=== PATIENT | female | born 1965 | race Caucasian/White ===

== ENCOUNTER → 2024-10-22 09:43 | Outpatient (REF) | payer OTHER, SELFPAY | LOC: RAD 09:43 | PROVIDERS: ATTENDING PHYSICIAN Orthopaedic Surgery Hand Surgery; FAMILY PHYSICIAN Nurse Practitioner Gerontology | DX: M79.642 Pain in left hand (principal) | CPT/HCPCS: 76881 ==

== ENCOUNTER 2025-02-04 06:00 | Day surgery (SDC) | payer OTHER, SELFPAY ==
[2025-01-21 09:16] LABS: % Basophils 1.3 % (0-2); % Eosinophils 2.1 % (0-6); % Immature Granulocytes 0.3 % (0-0.5); % Neutrophils 52.3 % (42.2-75.2); Absolute Basophils 0.1 10^3/uL (0-0.2); Absolute Eosinophils 0.1 10^3/uL (0-0.7); Absolute Lymphocytes 1.4 10^3/uL (1.2-3.4); Absolute Monocytes 0.3 10^3/uL (0.1-0.6); Hematocrit 37.3 % (37.0-47.0); Hemoglobin 12.3 g/dL (12.0-16.0); Mean Corpuscular Hgb 32.9 pg (27.0-31.0); Mean Corpuscular Volume 99.7 fL (81.0-99.0); Mean Platelet Volume 9.7 fL (7.4-10.4); Nucleated Red Blood Cells % 0 %; Platelet Count 232 10^3/uL (130-400); Red Blood Cell Count 3.74 10^6/uL (4.20-5.40); Red Cell Dist. Width 13.4 % (11.5-14.5); White Blood Cell Count 3.9 10^3/uL (4.8-10.8)
[2025-01-21 09:56] LABS: Blood Urea Nitrogen 10 mg/dl (7-17); Calcium 9.7 mg/dl (8.4-10.2); Carbon Dioxide 26 mmol/L (22-30); Chloride 107 mmol/L (98-107); Glucose 89 mg/dl (70-99); Potassium 4.7 mmol/L (3.5-5.1); Sodium 145 mmol/L (135-145); eGFR > 60.00
[2025-01-21 13:02] VITALS: BMI 27.0
[2025-02-04] VITALS (7 sets, daily range): BP systolic 111–130; BP diastolic 75–84; BMI 27.0
[2025-02-04] MEDS: CELEBREX 200 MG PO (06:23)
[2025-02-04] MEDS: TYLENOL 1000 MG PO (06:23)
[2025-02-04] MEDS: NORMOSOL-R/PLASMALYTE-A 1000 IV (06:30)
== END 2025-02-04 09:15 | disposition home or self-care (01) ==
LOC: SDS 06:00
PROVIDERS: ATTENDING PHYSICIAN Orthopaedic Surgery Hand Surgery; FAMILY PHYSICIAN Nurse Practitioner Gerontology
DX: M65.332 Trigger finger, left middle finger (principal); S63.522A Sprain of radiocarpal joint of left wrist, initial encounter; X58.XXXA Exposure to other specified factors, initial encounter
CPT/HCPCS: 26540; 26055; 36415; 80048; 85025; 93005; C1713

== ENCOUNTER 2025-03-11 13:09 | Outpatient (RCR) | payer OTHER, SELFPAY | END 2025-03-11 23:59 | disposition home or self-care (01) | LOC: ROT 13:09 | PROVIDERS: ATTENDING PHYSICIAN Physician Assistant Surgical; FAMILY PHYSICIAN Internal Medicine | DX: Z47.89 Encounter for other orthopedic aftercare (principal); M79.642 Pain in left hand; Z73.6 Limitation of activities due to disability | CPT/HCPCS: 97010; 97018; 97110; 97140; 97166; 97535 ==

== ENCOUNTER 2025-04-15 11:45 | Outpatient (RCR) | payer OTHER, SELFPAY | END 2025-04-15 23:59 | disposition home or self-care (01) | LOC: ROT 11:45 | PROVIDERS: ATTENDING PHYSICIAN Physician Assistant Surgical; FAMILY PHYSICIAN Internal Medicine | DX: Z47.89 Encounter for other orthopedic aftercare (principal); M79.642 Pain in left hand; Z73.6 Limitation of activities due to disability; M62.81 Muscle weakness (generalized) | CPT/HCPCS: 97018; 97022; 97110; 97140 ==

== ENCOUNTER 2025-04-22 14:23 | Outpatient (RCR) | payer OTHER, SELFPAY | END 2025-04-22 23:59 | disposition home or self-care (01) | LOC: ROT 14:23 | PROVIDERS: ATTENDING PHYSICIAN Physician Assistant Surgical; FAMILY PHYSICIAN Internal Medicine | DX: Z47.89 Encounter for other orthopedic aftercare (principal); M79.642 Pain in left hand; Z73.6 Limitation of activities due to disability | CPT/HCPCS: 97018; 97110; 97140 ==

== ENCOUNTER 2025-07-17 08:36 | Outpatient (RCR) | payer OTHER, SELFPAY | END 2025-07-17 23:59 | disposition home or self-care (01) | LOC: RPT 08:36 | PROVIDERS: ATTENDING PHYSICIAN Orthopaedic Surgery Hand Surgery; FAMILY PHYSICIAN Nurse Practitioner Gerontology | DX: Z47.89 Encounter for other orthopedic aftercare (principal); Z73.6 Limitation of activities due to disability; M62.81 Muscle weakness (generalized); M25.511 Pain in right shoulder | CPT/HCPCS: 97010; 97110; 97140; 97162 ==

== ENCOUNTER 2025-08-12 06:36 | Outpatient (RCR) | payer OTHER, SELFPAY | END 2025-08-12 23:59 | disposition home or self-care (01) | LOC: RPT 06:36 | PROVIDERS: ATTENDING PHYSICIAN Orthopaedic Surgery Hand Surgery; FAMILY PHYSICIAN Nurse Practitioner Gerontology | DX: Z47.89 Encounter for other orthopedic aftercare (principal); Z73.6 Limitation of activities due to disability; M62.81 Muscle weakness (generalized); M25.511 Pain in right shoulder | CPT/HCPCS: 97110; 97112; 97140 ==

== ENCOUNTER 2025-09-07 09:09 | Outpatient (RCR) | payer OTHER, SELFPAY | END 2025-09-07 23:59 | disposition home or self-care (01) | LOC: RPT 09:09 | PROVIDERS: ATTENDING PHYSICIAN Orthopaedic Surgery Hand Surgery; FAMILY PHYSICIAN Nurse Practitioner Gerontology | DX: Z47.89 Encounter for other orthopedic aftercare (principal); Z73.6 Limitation of activities due to disability; M62.81 Muscle weakness (generalized); M25.511 Pain in right shoulder | CPT/HCPCS: 97110; 97112; 97140 ==